=== PATIENT | male | born 1970 | race Caucasian/White ===

== ENCOUNTER → 2016-07-19 | Outpatient (CLI) | payer BC, OTHER ==
[~2016-07-19] MED LIST: OXYC1TAB3 PO
[2016-07-19 13:19] LABS: BASO % 0.5 %; BASO ABS # 0.03 K/uL (0-0.2); COMPLETE YES; EOS % 3.6 %; HEMATOCRIT 42.6 % (42-52); IG% 0.2 %; LYMPH % 27.6 %; LYMPH ABS # 1.83 K/uL (1.2-3.4); MEAN CELL VOLUME 85.2 fL (80-100); MEAN CORPUSCULAR HEMOGLOBIN 30.2 pg (25-34); MEAN CORPUSCULAR HGB CONC 35.4 g/dl (32-36); MEAN PLATELET VOLUME 10.5 fL (7.4-10.4); MONO % 7.2 %; NEUT % 60.9 %; PLATELET COUNT 160 K/uL (130-400); WHITE BLOOD COUNT 6.64 K/uL (4.8-10.8)
[2016-07-19 13:27] LABS: CHOLESTEROL/HDL RATIO 2.4
== END | disposition home or self-care (01) ==
LOC: C.LABMFLN 13:48
PROVIDERS: ATTEND Family Medicine
DX: Z13.0 Encounter for screening for diseases of the blood and blood-forming organs and certain disorders involving the immune mechanism (principal); Z13.1 Encounter for screening for diabetes mellitus; Z13.220 Encounter for screening for lipoid disorders

== ENCOUNTER → 2017-09-19 | Outpatient (CLI) | payer BC ==
--- NOTE | 2017-09-19 13:52 | DIAGNOSTIC IMAGING REPORT ---
CHEST 2 VIEWS ROUTINE HISTORY: R69 Influenza-like illness [id number] COMPARISON: None. FINDINGS: The lungs are clear. Cardiac silhouette is normal in size. No pleural effusions. No pneumothorax. IMPRESSION: No acute process. Electronically signed by: Ignacio Connors M.D. 09/19/2017 1:51 PM Dictated Date/Time: 09/19/2017 1:49 PM
== END | disposition home or self-care (01) ==
LOC: C.RAD 13:27
PROVIDERS: ATTEND Family Medicine
DX: R69 Illness, unspecified (principal)

== ENCOUNTER → 2017-12-20 | Day surgery (SDC) | payer BC ==
[2017-11-18 09:50] VITALS: Ht 182.9 cm; Wt 102.3 kg
[~2017-12-20] VITALS: Ht 182.9 cm; Wt 102.3 kg
[~2017-12-20] MED LIST changes: +ASPI81TA28 PO; +MULT-506 PO; -OXYC1TAB3 PO
== END | disposition home or self-care (01) ==
LOC: EDSTATUS 07:00 → C.PAT 16:11
PROVIDERS: ATTEND Surgery
DX: K40.90 Unilateral inguinal hernia, without obstruction or gangrene, not specified as recurrent (principal); Z53.9 Procedure and treatment not carried out, unspecified reason